=== PATIENT | female | born 1995 | race Caucasian/White ===

== ENCOUNTER 2017-02-17 15:33 | Emergency (ER) | payer SELFPAY ==
[~2017-02-17] VITALS: Ht 147.3 cm; Wt 73.1 kg
[2017-02-17 15:44] VITALS: BP 143/81
--- NOTE | 2017-02-17 16:36 | NUR ---
PT HERE FOR RT EYE STY X 1 NIGHT, DENIES ANY FEVERS. NO VISION CHANGES. DENIES ANY EYE DRAINAGE. EYE PIMPLE/STY NOTED TO RT EYE.
--- NOTE | 2017-02-17 17:15 | NUR ---
ER MD CASTORENA AT BEDSIDE
--- NOTE | 2017-02-17 17:59 | NUR ---
Patient discharged with v/s stable. Written and verbal after care instructions given and explained. Patient alert, oriented and verbalized understanding of instructions. Ambulatory with steady gait. All questions addressed prior to discharge. ID band removed. Patient advised to follow up with PMD. Rx of AZITHROMYCIN given. Patient educated on indication of medication including possible reaction and side effects. Opportunity to ask questions provided and answered.
[2017-02-17 18:00] VITALS: BP 116/80
== END 2017-02-17 18:00 | disposition home or self-care (01) ==
LOC: MED 15:33
DX: H00.013 Hordeolum externum right eye, unspecified eyelid (principal)
CPT/HCPCS: 99283

== ENCOUNTER 2017-04-07 11:46 | Emergency (ER) | payer MEDICAID ==
[~2017-04-07] VITALS: Ht 149.9 cm; Wt 73.5 kg
[2017-04-07 12:35] VITALS: BP 122/77
--- NOTE | 2017-04-07 12:49 | NUR ---
21/F BIB BOYFRIEND C/O DIFFICULTY SWALLOWING THIS AM, SORE THROAT X2DAYS, COUGH X3-4DAYS. REPORTS FEVER AND CHILLS LAST NIGHT. HX IRON DEFICIENCY ANEMIA. SX DENIES. AX DENEIS. DENIES N/V/D; SKIN IS PINK/WARM/DRY; AAOX4 WITH EVEN AND STEADY GAIT; LUNGS CLEAR BL; HR EVEN AND REGULAR; PT DENIES ANY FEVER, CP, SOB, OR COUGH AT THIS TIME; PATIENT STATES PAIN OF 8/10 AT THIS TIME; VSS; PATIENT POSITIONED FOR COMFORT; HOB ELEVATED; BEDRAILS UP X2; BED DOWN. ER MD MADE AWARE OF PT STATUS.
[2017-04-07 13:55] VITALS: BP 112/70
--- NOTE | 2017-04-07 13:55 | NUR ---
Patient discharged with v/s stable. Written and verbal after care instructions given and explained. Patient alert, oriented and verbalized understanding of instructions. Ambulatory with steady gait. All questions addressed prior to discharge. ID band removed. Patient advised to follow up with PMD. Rx of tramadol, promethazine given. Patient educated on indication of medication including possible reaction and side effects. Opportunity to ask questions provided and answered.
== END 2017-04-07 13:55 | disposition home or self-care (01) ==
LOC: MED 11:46
DX: J11.1 Influenza due to unidentified influenza virus with other respiratory manifestations (principal); I10 Essential (primary) hypertension
CPT/HCPCS: 99283